=== PATIENT | male | born 2000 | race Caucasian/White ===

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

== ENCOUNTER → 2019-07-22 08:11 | Outpatient (CLI) | payer OTHER, SELFPAY ==
--- NOTE | 2019-07-22 08:17 | US_ITS ---
PROCEDURE: US ABDOMEN LIMITED CLINICAL INDICATION: ABD PAIN The upper abdominal pain with indigestion COMPARISON: RUQ US RUQ-(ABD LTD)1ORGAN/QUAD/FU from 06/27/2016 FINDINGS: PANCREAS: Unremarkable. No obvious mass or abnormal fluid collection. No ductal dilatation LIVER: No focal liver lesions are demonstrated. There is slight diffuse increase in echogenicity of the liver which may be related to fatty liver. There is appropriate direction of blood flow within a non dilated portal vein. No intrahepatic ductal dilatation is evident RIGHT KIDNEY: Unremarkable. Normal size and echogenicity. No hydronephrosis GALLBLADDER: No gallstones, gallbladder wall thickening, pericholecystic fluid, or biliary dilatation. IMPRESSION: Unremarkable gallbladder ultrasound. Possible mild Paddock steatosis Dictated by: Wilfrid Reynoso MD 07/22/2019 16:27 Electronically signed by Wilfrid Reynoso MD in [place] 07/22/2019 16:27
--- NOTE | 2019-07-22 08:17 | FL_ITS ---
PROCEDURE: FL UPPER GI W AIR CLINICAL INDICATION: ABD PAIN Abdominal pain COMPARISON: No exams were available for comparison TECHNIQUE: FLUOROSCOPY TIME : 1 minutes and 45 seconds FINDINGS: The esophagus, stomach, and duodenum have an unremarkable appearance.There is no evidence of hiatal hernia. No ulcer or mass evident. No mucosal abnormalities apparent. There is normal peristalsis. The duodenal C-loop is nondisplaced. IMPRESSION: Unremarkable upper GI Dictated by: Wilfrid Reynoso MD 07/22/2019 15:21 Electronically signed by Wilfrid Reynoso MD in [facility] 07/22/2019 15:21
== END ==
PROVIDERS: PCP Family Medicine; Visit Provider Family Medicine
DX: R10.84 Generalized abdominal pain (principal)
CPT/HCPCS: 74246; 76705

== ENCOUNTER 2019-09-05 11:34 | Emergency (ER) | payer OTHER, SELFPAY ==
[2019-09-05 11:35] VITALS: BP 170/64; PULSE 80; RESP 16; TEMP 36.6; O2SAT 98; BMI 34.7
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
[2019-09-05 12:01] VITALS: BP 118/78; PULSE 75; RESP 18; TEMP 36.7; O2SAT 99
== END 2019-09-05 12:04 | disposition home or self-care (01) ==
LOC: ER 11:58
PROVIDERS: Emergency Provider Emergency Medicine; PCP Family Medicine
DX: T15.91XA Foreign body on external eye, part unspecified, right eye, initial encounter (principal); J45.909 Unspecified asthma, uncomplicated; F17.290 Nicotine dependence, other tobacco product, uncomplicated; Z23 Encounter for immunization
CPT/HCPCS: 90471; 90715; 96372; 99281

== ENCOUNTER 2021-06-05 15:34 | Emergency (ER) | payer OTHER, SELFPAY ==
[2021-06-05 15:46] VITALS: BP 135/73; PULSE 109; RESP 16; TEMP 37.1; O2SAT 98; BMI 33.5
--- NOTE | 2021-06-05 16:02 | CT_ITS ---
PROCEDURE INFORMATION: Exam: CT Abdomen And Pelvis With Contrast Exam date and time: 06/05/2021 4:02 PM Age: 20 years old Clinical indication: Abdominal pain; Localized; Right lower quadrant (rlq); Additional info: Rlq pain, back pain with radiation to groin TECHNIQUE: Imaging protocol: Computed tomography of the abdomen and pelvis with contrast. Radiation optimization: All CT scans at this facility use at least one of these dose optimization techniques: automated exposure control; mA and/or kV adjustment per patient size (includes targeted exams where dose is matched to clinical indication); or iterative reconstruction. Contrast material: ISOVUE; Contrast volume: 75 ml; Contrast route: IV; COMPARISON: ABDPELW CT abdomen pelvis w con 09/01/2018 10:15 PM FINDINGS: Liver: Mildly fatty liver. Gallbladder and bile ducts: Normal. No calcified stones. No ductal dilation. Pancreas: Normal. No ductal dilation. Spleen: Normal. No splenomegaly. Adrenal glands: Normal. No mass. Kidneys and ureters: Normal. No hydronephrosis. Stomach and bowel: No diverticulitis. No bowel obstruction or evidence of appendicitis. Diarrhea without evidence for colitis. Small bowel wall thickening without surrounding inflammation, which may represent incomplete distension or limited enteritis. Appendix: Normal appendix. Intraperitoneal space: Unremarkable. No free air. No significant fluid collection. Vasculature: Unremarkable. No abdominal aortic aneurysm. Lymph nodes: Unremarkable. No enlarged lymph nodes. Urinary bladder: Unremarkable as visualized. Reproductive: Unremarkable as visualized. Bones/joints: Unremarkable. No acute fracture. Soft tissues: Unremarkable. Other findings: No other acute disease seen. As above. IMPRESSION: 1. No diverticulitis. No bowel obstruction or evidence of appendicitis. 2. Diarrhea without evidence for colitis. 3. Small bowel wall thickening without surrounding inflammation, which may represent incomplete distension or limited enteritis. 4. No other acute disease seen. As above.
--- NOTE | 2021-06-05 16:02 | HMH.EDGENADL ---
ED Disposition Clinical Impression: Gastroenteritis Disposition: Home, Self-Care Condition on Discharge: Good Referrals: Bibi Sams MD [Primary Care Provider] - - Critical Care Critical Care Time: No Attestation: On 06/05/21, the high probability of a clinically significant, sudden or life threatening deterioration of the following system(s) required my full and direct attention, intervention and personal management. The time I documented below is in addition to time spent performing reported procedures but includes the following listed in this critical care notation. Medical Decision Making - Medical Records Medical records reviewed: Yes: I reviewed the patient's medical records. - Juan Jose Inquiry Pt receiving controlled substance: No Vital Signs: 06/05/21 15:46 Temperature 98.8 F Temperature Source Oral Pulse Rate [Radial] 109 H Respiratory Rate 16 Blood Pressure [Right Arm] 135/73 Blood Pressure Mean [Right Arm] 93 Blood Pressure Position [Right Arm] Sitting 02 Sat by Pulse Oximetry 98 Oxygen Delivery Method Room Air - Lab Data Lab results reviewed: Yes: I reviewed the patient's lab results. Lab Results 06/05/21 15:55: WBC 10.6, RBC 5.36, Hgb 15.8, Hct 46.9, MCV 87.4, MCH 29.5, MCHC 33.8, RDW 13.3, Plt Count 290, MPV 7.7, Neut % (Auto) 83.4 H, Lymph % (Auto) 6.5 L, [place] % (Auto) 7.3, Eos % (Auto) 1.8, Baso % (Auto) 1.1, Neut # (Auto) 8.8 H, Lymph # (Auto) 0.7, [place] # (Auto) 0.8, Eos # (Auto) 0.2, Baso # (Auto) 0.1 06/05/21 15:55: Sodium 139, Potassium 3.9, Chloride 106, Carbon Dioxide 23, Anion Gap 13.9, BUN 17, Creatinine 0.80, Estimated Creat Clear 223, Estimated GFR 121, Est GFR ( Amer) 146, Glucose 103 H, Calcium 9.0, Total Bilirubin 0.8, AST 36, ALT 48, Alkaline Phosphatase 66, Total Protein 7.5, Albumin 4.9, Globulin 2.6, Albumin/Globulin Ratio 1.9 H, Lipase 50 06/05/21 15:55: C-Reactive Protein 4.2 H Result diagrams: 06/05/21 15:55 06/05/21 15:55 Orders (Tests/Meds): ED MEDICATIONS Discontinued Medications Generic Name Dose Route Start Last Admin Trade Name John PRN Reason Stop Dose Admin Acetaminophen 1,000 mg 06/05/21 16:09 06/05/21 16:32 Acetaminophen 500mg Tab PO 06/05/21 16:10 Not Given ONCE ONE Lactated Ringer's 1,000 mls @ 999 mls/hr 06/05/21 16:00 06/05/21 16:32 Lactated Ringer's 1000 Ml Bag IV 06/05/21 17:00 999 mls/hr .Q1H1M MALIKA Administration Iopamidol 75 ml 06/05/21 16:12 06/05/21 16:13 Iopamidol-370 (76%);100ml Bottle IV 06/05/21 16:13 75 ml ONCE ONE Administration Ketorolac Tromethamine 30 mg 06/05/21 16:09 06/05/21 16:31 Ketorolac 30mg/Ml Vial IV 06/05/21 16:10 30 mg ONCE ONE Administration Ondansetron HCl 4 mg 06/05/21 15:53 06/05/21 16:31 Ondansetron 4mg/2ml Vial IV 06/05/21 15:54 4 mg ONCE ONE Administration Sodium Chloride 10 ml 06/05/21 16:12 06/05/21 16:13 Sodium Chloride 0.9% 10ml Syr (Rad Only) IV 06/05/21 16:13 10 ml ONCE ONE Administration ORDERS Category Date Time Status Lactic Acid Stat Lab 06/05/21 15:52 Ordered Urinalysis and Microscopic Stat Lab 06/05/21 15:51 Ordered Medical Decision Narrative: Patient is a healthy 20-year-old male presenting with back pain with radiation to lower abdomen bilaterally and right lower quadrant pain. Differential diagnosis includes, but is not limited to, renal stone, appendicitis, diverticulitis, gastroenteritis, urinary tract infection, pyelonephritis, other. Initial exam, patient is hemodynamically stable and nontoxic-appearing but mildly tachycardic. Exam of the abdomen reveals tenderness in the epigastrium, all left lower quadrant and right lower quadrant but maximal tenderness is in the right lower quadrant with rebound. No CVA tenderness to percussion of flanks but patient reports back pain with palpation of the paraspinal muscles. No pain with direct palpation over the C, T or L-spine. Patient was evaluate CBC, C
[2021-06-05 16:11] LABS: Alanine Aminotransferase 48 U/L (12-78); Albumin Level 4.9 g/dl (3.5-5.0); Albumin/Globulin Ratio 1.9 (1.1-1.8); Alkaline Phosphatase 66 U/L (38-126); Anion Gap 13.9 mEq/L (5-15); Aspartate Amino Transferase 36 U/L (17-59); Bilirubin,Total 0.8 mg/dl (0.2-1.3); Blood Urea Nitrogen 17 mg/dl (9-20); Carbon Dioxide 23 mmol/L (22.0-30.0); Chloride 106 mmol/L (98-107); Creatinine Clearance Estimated 223 mL/min (50-200); Estimated Glomerular Filt Rate 121 ml/min (>60); GFR (African American) 146 ML/MIN (>60); Globulin 2.6 g/dL (1.3-3.2); Glucose 103 mg/dl (74-100); Lipase 50 U/L (23-300); Potassium 3.9 mmoL/L (3.5-5.1); Sodium 139 mmol/L (136-145); Total Protein,Serum 7.5 g/dl (6.3-8.2)
[2021-06-05 16:25] LABS: C-Reactive Protein 4.2 mg/L (0-4)
[2021-06-05 16:30] LABS: Basophils # 0.1 K/mm3 (0-0.2); Basophils % 1.1 % (0.1-2.0); Eosinophils # 0.2 K/mm3 (0.0-0.4); Eosinophils % 1.8 % (0.1-12.0); Hematocrit 46.9 % (42.0-52.0); Hemoglobin 15.8 g/dL (14.1-18.0); Lymphocytes # 0.7 K/mm3 (0.7-4.5); Lymphocytes % 6.5 % (10-50); Mean Corpuscular HGB Conc 33.8 g/dL (31.8-35.4); Mean Corpuscular Hemoglobin 29.5 pg (27.0-31.2); Mean Corpuscular Volume 87.4 fl (80-94); Mean Platelet Volume 7.7 fl (7.4-10.4); Monocytes # 0.8 K/mm3 (0.1-1.0); Monocytes % 7.3 % (1.7-9.3); Neutrophils # 8.8 K/mm3 (1.8-7.8); Neutrophils % 83.4 % (37.0-80.0); Platelet Count 290 K/mm3 (142-424); Red Blood Count 5.36 M/mm3 (4.60-6.20); Red Cell Distribution Width 13.3 % (11.5-17.5); White Blood Count 10.6 K/mm3 (4.8-10.8)
[2021-06-05 17:24] VITALS: BP 129/74; PULSE 89; RESP 17; TEMP 37.1; O2SAT 98
== END 2021-06-05 17:25 | disposition home or self-care (01) ==
PROVIDERS: Emergency Provider Emergency Medicine; PCP Family Medicine
DX: K52.9 Noninfective gastroenteritis and colitis, unspecified (principal); M54.50 Low back pain, unspecified; F17.290 Nicotine dependence, other tobacco product, uncomplicated
CPT/HCPCS: 74177; 80053; 83690; 85025; 86140; 96365; 96375; 99284; J2405; Q9967

== ENCOUNTER 2022-11-29 22:25 | Emergency (ER) | payer BC, SELFPAY ==
[2022-11-29 22:25] VITALS: BP 160/100; PULSE 79; RESP 20; TEMP 36.9; O2SAT 100; BMI 34.2
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
[2022-11-29 22:30] VITALS: BP 160/100; PULSE 84; RESP 14; O2SAT 98
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
--- NOTE | 2022-11-29 22:40 | PC.NURSE ---
Fast Exam negative per ER MD
[2022-11-29 22:41] LABS: Basophils # 0.1 K/mm3 (0-0.2); Basophils % 0.6 % (0.1-2.0); Eosinophils # 0.3 K/mm3 (0.0-0.4); Eosinophils % 2.7 % (0.1-12.0); Hematocrit 45.6 % (42.0-52.0); Lymphocytes # 3.2 K/mm3 (0.7-4.5); Lymphocytes % 32.9 % (10-50); Mean Corpuscular HGB Conc 32.9 g/dL (31.8-35.4); Mean Corpuscular Hemoglobin 28.1 pg (27.0-31.2); Mean Corpuscular Volume 85.4 fl (80-94); Mean Platelet Volume 7.4 fl (7.4-10.4); Monocytes # 0.5 K/mm3 (0.1-1.0); Monocytes % 5.3 % (1.7-9.3); Neutrophils # 5.6 K/mm3 (1.8-7.8); Neutrophils % 58.5 % (37.0-80.0); Platelet Count 294 K/mm3 (142-424); Red Blood Count 5.34 M/mm3 (4.60-6.20); Red Cell Distribution Width 13.1 % (11.5-17.5); White Blood Count 9.6 K/mm3 (4.8-10.8)
--- NOTE | 2022-11-29 22:43 | PC.NURSE ---
RAD at BS
--- NOTE | 2022-11-29 22:47 | PC.NURSE ---
FSBS: 132 Manual BP: 160/100
[2022-11-29 22:53] LABS: Chloride 103 mmol/L (98-107); Potassium 3.7 mmoL/L (3.5-5.1); Sodium 140 mmol/L (136-145)
[2022-11-29 22:56] LABS: Alanine Aminotransferase 49 U/L (12-78); Albumin Level 4.6 g/dl (3.5-5.0); Albumin/Globulin Ratio 1.5 (1.1-1.8); Alkaline Phosphatase 84 U/L (38-126); Anion Gap 14.7 mEq/L (5-15); Aspartate Amino Transferase 37 U/L (17-59); Bilirubin,Total 0.3 mg/dl (0.2-1.3); Blood Urea Nitrogen 20 mg/dl (9-20); Carbon Dioxide 26 mmol/L (22.0-30.0); Creatinine Clearance Estimated 150 mL/min (50-200); Estimated Glomerular Filt Rate 74 ml/min (>60); GFR (African American) 90 ML/MIN (>60); Total Protein,Serum 7.6 g/dl (6.3-8.2)
[2022-11-29 22:57] LABS: Glucose 127 mg/dl (74-100)
[2022-11-29 23:01] VITALS: BP 123/86; PULSE 98; O2SAT 98
--- NOTE | 2022-11-29 23:18 | PC.NURSE ---
Cleaned wound on right arm with hibiclens and sterile water. Pt declined having wound on leg cleaned.
--- NOTE | 2022-11-29 23:20 | PC.NURSE ---
Pt ambulatory to bathroom
--- NOTE | 2022-11-29 23:28 | PC.NURSE ---
Dr. Jacinto at
[2022-11-29 23:45] VITALS: BP 123/86; PULSE 94; RESP 16; TEMP 36.9; O2SAT 97
== END 2022-11-29 23:47 | disposition home or self-care (01) ==
PROVIDERS: Emergency Provider Emergency Medicine
DX: S52.092A Other fracture of upper end of left ulna, initial encounter for closed fracture (principal); S50.811A Abrasion of right forearm, initial encounter; V28.09XA Other motorcycle driver injured in noncollision transport accident in nontraffic accident, initial encounter
CPT/HCPCS: 71045; 72170; 73060; 73080; 73090; 73110; 80053; 85025; 96374; 96375; 99285; J2405

== ENCOUNTER 2022-12-02 10:43 | Outpatient (RCR) | payer BC, SELFPAY | END 2022-12-02 11:50 | disposition home or self-care (01) | LOC: OT 10:43 | PROVIDERS: Visit Provider Orthopaedic Surgery | DX: M25.532 Pain in left wrist (principal) | CPT/HCPCS: 97763 ==

== ENCOUNTER 2023-10-13 22:01 | Emergency (ER) | payer BC, SELFPAY ==
[2023-10-13 22:06] VITALS: BP 180/105; PULSE 120; RESP 20; TEMP 36.9; O2SAT 97
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
[2023-10-13 23:35] VITALS: BP 155/95; PULSE 100; RESP 20; TEMP 36.8; O2SAT 98
== END 2023-10-13 23:35 | disposition home or self-care (01) ==
PROVIDERS: Emergency Provider Emergency Medicine; PCP Nurse Practitioner Family
DX: S40.212A Abrasion of left shoulder, initial encounter (principal); V28.99XA Unspecified rider of other motorcycle injured in noncollision transport accident in traffic accident, initial encounter
CPT/HCPCS: 70450; 71045; 99284

== ENCOUNTER 2024-01-09 19:31 | Emergency (ER) | payer BC, SELFPAY ==
[2024-01-09 19:40] VITALS: BP 148/102; PULSE 72; RESP 18; TEMP 36.6; O2SAT 98; BMI 34.5
[2024-01-09 19:54] LABS: Coronavirus 19, PCR Not Detected (NotDetected); Influenza A, PCR Not Detected (NotDetected); Influenza B, PCR Not Detected (NotDetected)
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
[2024-01-09 20:07] LABS: Strep Scrn Group A (Rapid) Negative (Negative)
[2024-01-09 20:57] VITALS: BP 137/96; PULSE 68; RESP 18; TEMP 36.5; O2SAT 97
== END 2024-01-09 21:02 | disposition home or self-care (01) ==
PROVIDERS: Nurse Practitioner Family; Emergency Provider Student in an Organized Health Care Education/Training Program; PCP Nurse Practitioner Family
DX: J06.9 Acute upper respiratory infection, unspecified (principal); J02.9 Acute pharyngitis, unspecified; R09.82 Postnasal drip; R50.9 Fever, unspecified; R19.7 Diarrhea, unspecified; R10.9 Unspecified abdominal pain; Z20.822 Contact with and (suspected) exposure to COVID-19
CPT/HCPCS: 87430; 87636; 99283

== ENCOUNTER 2024-03-05 11:36 | Emergency (ER) | payer BC, SELFPAY ==
--- NOTE | 2024-03-05 12:00 | ED_ITS ---
Discharge Plan Disposition Patient Disposition: Home, Self-Care Condition: Good Prescriptions Prescriptions: New methylprednisolone 4 mg Tablets,Dose Pack 4 mg PO DIRECTED 6 Days Qty: 21 0RF Rx Instructions: Take 1 pack as directed for 6 days [id number] [Bromfed DM] 2-30-10 mg/5 mL Syrup 5 ml PO Q6H PRN (Reason: Cough) Qty: 240 0RF cefdinir 300 mg capsule 300 mg PO BID Qty: 20 0RF No Action omeprazole 40 mg capsule,delayed release(DR/EC) 40 mg PO DAILY Patient Comments: TAKE 1 CAPSULE BY MOUTH ONCE DAILY Referrals Follow up/Referrals: Sophie Diamond APRN [Primary Care Provider] - See instructions Activity Restrictions/Add. Instructions Additional Instructions/Restrictions: Drink plenty of fluids. Take tylenol or ibuprofen for pain or fever. Take the medications as directed. Follow up with your regular doctor. GO TO THE ER FOR ANY WORSENING SYMPTOMS Clinical Impressions Clinical Impression: Sinusitis, Acute right otitis media Stand Alone Forms Stand Alone Forms: Work/School Release Instructions Patient Instructions: Sinusitis, DI for Sinusitis Print Language Print Language: Malawian Discharge ED Provider: Joo Tol[place] [facility] General Stated complaint: congestion cough vomiting fever Time Seen by Provider: 03/05/24 12:00 Related Data Home Medications ?Medication ?Instructions ?Recorded ?Confirmed omeprazole 40 mg capsule,delayed 40 mg PO DAILY 03/05/24 03/05/24 release Previous Rx's ?Medication ?Instructions ?Recorded [id number] 5 ml PO Q6H PRN Cough #240 mL 03/05/24 2 mg-30 mg-10 mg/5 mL oral syrup (Bromfed DM) cefdinir 300 mg capsule 300 mg PO BID #20 caps 03/05/24 methylprednisolone 4 mg tablets in 4 mg PO DIRECTED 6 days #21 tabs 03/05/24 a dose pack Allergies Allergy/AdvReac Type Severity Reaction Status Date / Time Penicillins (PENICILLINS) Allergy Mild Verified 12/02/22 10:05 Sulfa (Sulfonamide Allergy Mild Verified 12/02/22 10:05 Antibiotics) (SULFA (SULFONAMIDE ANTIBIOTICS)) [facility] Disclaimer: The information contained in this section may have been updated after the patient was seen, as this information can be updated by other users. Social History , PRESSING MACHINE TENDER) Smoking Status: Current every day smoker tobacco type: smokeless tobacco alcohol intake: never current occupational status: employed household members: none housing: other number of children: 1 ROS Obtained: Yes All systems reviewed & no additional complaints except as documented Constitutional Constitutional: Reports chills and Reports fever(s) Eyes Eyes: Denies eye discharge ENT Ears, Nose, Mouth, and Throat: Reports as per HPI Cardiovascular Cardiovascular: Denies chest pain Respiratory Respiratory: Denies chest congestion and Reports cough Gastrointestinal Gastrointestingal: Reports nausea; Denies abdominal pain, constipation, cramping, diarrhea or vomiting Musculoskeletal Musculoskeletal: Denies arthralgias Integumentary/Breasts Skin/Breast: Denies rash Neurologic Neurologic: Denies paresthesias Physical Exam General General appearance: alert and in no apparent distress Eye Eye exam: Present normal appearance, PERRL and EOMI ENT ENT exam: Present mucous membranes moist and normal external ear exam Expanded ENT Exam External ear exam: Present normal external inspection TM/Canal exam: Bilateral TM: erythema and bulging Nose exam: Absent sinus tenderness Nasal speculum exam: Bilateral: normal Mouth exam: Present normal external inspection; Absent drooling Teeth exam: Present normal inspection Throat exam: Present tonsillar erythema and tonsillomegaly Neck Neck exam: Present normal inspection, full ROM and trachea midline; Absent tenderness, lymphadenopathy or thyromegaly Chest Chest inspection: Present normal inspection and symmetric chest wall rise; Absent tenderness or rash Respiratory Respiratory exam: Present normal lung sounds bilaterally; Absent respiratory distress, wheezes, stridor or accessory muscle use Cardiovascular Cardiovascular exam: Present regular rate, normal rhythm and normal heart sounds Abdominal Exam Abdominal exam: Present soft; Absent distention, tenderness, guarding, rebound or rigidity Extremities Exam Extremities exam: Present normal inspection, full ROM and normal capillary refill; Absent tenderness or calf tenderness Back Exam Back exam: Present normal inspection and full ROM; Absent tenderness Neurological Exam Neurological exam: Present alert and oriented X3 Psychiatric Psychiatric exam: Present normal affect and normal mood Skin Skin exam: Present warm, dry, intact and normal color Lymphatic Lymphatic Findings: no adenopathy Medical Decision Making Medical Records Medical records reviewed: No I reviewed the patient's medical records. Screening: Per USPSTF and CDC recommendations, given the prevalence of disease in our region, it is our hospital?s policy to screen for HIV and viral Hepatitis for all patients aged 18 and over and those with ongoing risk factors. Juan Jose Inquiry Pt receiving controlled substance: No
[2024-03-05 12:04] VITALS: BP 147/78; PULSE 92; RESP 20; TEMP 36.9; O2SAT 97; BMI 36.9
[2024-03-05 12:50] VITALS: BP 147/78; PULSE 92; RESP 20; TEMP 36.9
== END 2024-03-05 13:31 | disposition home or self-care (01) ==
PROVIDERS: Emergency Provider Nurse Practitioner Family; PCP Nurse Practitioner Family
DX: H66.93 Otitis media, unspecified, bilateral (principal)
CPT/HCPCS: 99213; G0381

== ENCOUNTER 2024-05-18 15:45 | Outpatient (CLI) | payer BC, SELFPAY | END 2024-05-18 23:59 | disposition home or self-care (01) | LOC: RT 15:47 | PROVIDERS: PCP Physician Assistant; Visit Provider Physician Assistant | DX: R00.2 Palpitations (principal) | CPT/HCPCS: 93225; 93227 ==

== ENCOUNTER 2024-06-30 12:10 | Outpatient (CLI) | payer BC, SELFPAY ==
--- NOTE | 2024-06-30 12:19 | XR_ITS ---
FINAL REPORT CLINICAL HISTORY: LT FOOT PAIN. 1st metatarsal to tip of big toe pain. FINDINGS: AP, oblique and lateral views of the left foot were obtained. No prior exam for comparison. There is no acute fracture or dislocation. The joint spaces are preserved. Soft tissues are unremarkable. IMPRESSION: No acute osseous abnormality of the left foot. Reviewed, Interpreted and Dictated by Leticia Robles MD Transcribed by Kandis Brock Authenticated and [facility]
[2024-06-30 12:53] LABS: Basophils % 0.3 % (0.1-2.0); Eosinophils # 0.1 K/mm3 (0.0-0.4); Eosinophils % 0.8 % (0.1-12.0); Hemoglobin 15.6 g/dL (14.1-18.0); Lymphocytes # 1.7 K/mm3 (0.7-4.5); Lymphocytes % 22.2 % (10-50); Mean Corpuscular HGB Conc 34.7 g/dL (31.8-35.4); Mean Corpuscular Hemoglobin 29.3 pg (27.0-31.2); Mean Corpuscular Volume 84.6 fl (80-94); Mean Platelet Volume 8.6 fl (7.4-10.4); Monocytes # 0.5 K/mm3 (0.1-1.0); Monocytes % 6.9 % (1.7-9.3); Neutrophils # 5.2 K/mm3 (1.8-7.8); Neutrophils % 69.5 % (37.0-80.0); Platelet Count 282 K/mm3 (142-424); Red Blood Count 5.32 M/mm3 (4.60-6.20); White Blood Count 7.5 K/mm3 (4.8-10.8)
[2024-06-30 13:09] LABS: C-Reactive Protein 3.9 mg/L (0-4)
[2024-06-30 13:16] LABS: Uric Acid 9.2 mg/dl (3.5-8.5)
[2024-06-30 13:52] LABS: Erythrocyte Sedimentation Rate 3 mm/hr (0-15)
== END 2024-06-30 23:59 | disposition home or self-care (01) ==
LOC: RAD 12:12
PROVIDERS: PCP Nurse Practitioner Family; Visit Provider Nurse Practitioner Family
DX: M79.672 Pain in left foot (principal); M79.89 Other specified soft tissue disorders
CPT/HCPCS: 36415; 73630; 84550; 85025; 85651; 86140

== ENCOUNTER 2025-02-03 00:57 | Emergency (ER) | payer BC, SELFPAY ==
--- OUTSIDE RECORDS SUMMARY | 2024-05-18 11:00 | XMS_ITS ---
Author Organization [facility] Address [address] [place] [id number] Care Team Providers Care Legal Counsel Name Role Phone Alex Sams Primary Care Provider Ruchi Villasenor Unavailable [phone] Justyna Frankel Unavailable [phone] Allergies Allergen (clinical drug ingredient) Drug/Non Drug Allergy documented on EMR Reaction Allergy Type Onset Date Status PEANUTS, SHRIMP, GRASS (uncoded) Unknown Allergy Active Substance with penicillin structure and antibacterial mechanism of action (substance) Penicillins Unknown Drug Allergy Active Substance with sulfonamide structure and antibacterial mechanism of action (substance) Sulfa Antibiotics Unknown Drug Allergy Active Results Component Value Reference Range Notes Urinalysis - Inhouse Reviewed date:05/18/2024 03:49:37 PM Interpretation: Performing Lab: Notes/Report: Color/Clarity yellow/clear Leuk Neg Nitrite Neg Urobili 3.2 Protein Neg pH 6.0 Blood Neg Sp. Gr. 1.025 Ketone Neg Bili Neg Gluc Neg CBC Fingerstick (in house) Reviewed date:05/18/2024 03:49:46 PM Interpretation: Performing Lab: Notes/Report: wbc 9.1 3.5 - 10 lym 27.1% 15 - 50 mid 5.8% 2 - 15 gran 67.1% 35 - 80 rbc 5.96 3.5 - 5.5 hgb 17.2 11.5 - 16.5 hct 50.6 35 - 55 mcv 84.9 75 - 100 mch 29.0 25 - 35 mchc 34.1 31 - 38 plat 284 100 - 400 P-Amylase Reviewed date:05/23/2024 07:44:41 AM Interpretation: Performing Lab: Notes/Report: Test performed by [facility] [address] , [address], [place] [address] Tang Fatima MD, Retail Service Representative CLIA: [id number] Amylase 46 28-100 U/L P-Vitamin B12 Reviewed date:05/23/2024 07:44:41 AM Interpretation: Performing Lab: Notes/Report: Test performed by [facility] , [address], [place] [address] Tang Fatima MD, Retail Service Representative CLIA: [id number] Vitamin B12 878 017-0435 pg/mL P-Comprehensive Metabolic Pa fiona (CMP) Reviewed date:05/23/2024 07:44:41 AM Interpretation: Performing Lab: Notes/Report: Test performed by [facility] [address] [place] [address] , [place] [address] Tang Fatima MD, Retail Service Representative CLIA: [id number] Sodium 140 135-145 mmol/L Potassium 4.3 3.5-5.3 mmol/L Chloride 99 97-108 mmol/L CO2 25 22-32 mmol/L Glucose 86 65-99 mg/dL BUN 13 6-20 mg/dL Creatinine 1.08 0.70-1.30 mg/dL Calcium 10.6 8.6-10.4 mg/dL eGFR by Creatinine 97 >59 mL/min/1.73m2 Protein 7.9 6.0-8.3 g/dL Albumin 5.0 3.5-5.3 g/dL Alkaline Phosphatase 67 40-129 IU/L ALT (SGPT) 46 <5-55 IU/L AST (SGOT) 23 <5-46 IU/L Bilirubin, Total 0.5 <0.2-1.2 mg/dL A/G Ratio 1.7 1.1-2.5 P-Lipase Reviewed date:05/23/2024 07:44:41 AM Interpretation: Performing Lab: Notes/Report: Test performed by [facility] [address] [place] [address] , [address], [place] [address] Tang Fatima MD, Retail Service Representative CLIA: [id number] Lipase 23.7 13.0-60.0 u/L P-Lipid Panel Reviewed date:05/23/2024 07:44:41 AM Interpretation: Performing Lab: Notes/Report: Test performed by [employer] [facility] [address], [place] [address] Tang Fatima MD, Retail Service Representative CLIA: [id number] Cholesterol 203 <200 mg/dL Triglycerides 251 <150 mg/dL HDL Cholesterol 31 >39 mg/dL Cholesterol / HDL Ratio 6.55 0.00-4.99 Ratio Non-HDL Cholesterol 172 <130 mg/dL LDL Cholesterol (Calculation) 122 <130 mg/dL LDL Cholesterol Levels* Less than 100 mg/dL Optimal 100 to 129 mg/dL Near Optimal/ Above Optimal 130 to 159 mg/dL Borderline High 160 to 189 mg/dL High 190 mg/dL and above Very High * Categories as recommended by the 2004 ATPIII guidelines LDL/HDL Ratio 3.9 <3.3 Ratio LDL Cholesterol Patient History Test Date: 05/18/2024 LDL Results: 122 Units: mg/dL % Change: - P-TSH reflex to FT4 Reviewed date:05/23/2024 07:44:41 AM Interpretation: Performing Lab: Notes/Report: Test performed by [facility] [address] [facility] [address], [place] [address] Tang Fatima MD, Retail Service Representative CLIA: [id number] TSH reflex to FT4 1.59 0.43-5.25 mU/L P-Vitamin D 25-Hydroxy Reviewed date:05/23/2024 07:44:41 AM Interpretation: Performing Lab: Notes/Report: Test performed by [facility] [address] [facility] , [address], [place] [address] Tang Fatima MD, Retail Service Representative CLIA: [id number] Vitamin D 25-Hydroxy 15.7 30.0-100.0 ng/mL Interpretation of Vitamin D 25 OH: < 20 ng/mL - Deficiency 20 - 29 ng/mL - Insufficiency 30 - 100 ng/mL - Sufficiency > 100 ng/mL - Super-therapeutic- toxicity may occur above this level. Clinical correlation required. Holter Monitor- 48 hour Reviewed date:08/05/2024 11:21:05 AM Interpretation: Performing Lab: Notes/Report: Reason For Referral Diagnosis 1 Abdominal cramps (R1 0.9) Diagnosis 2 Chronic diarrhea (K5 2.9) [facility] Referring Provider First Name Justyna Referring Provider Last Name Marlys Referring Provider Speciality Physician Advertising Designer Referred Provider Gastroenterology, . Referred Provider Specialty Gastroentero logy General Notes Justyna Frankel 05/18 4:31:56 PM > Pt needs an appt with Shana Carter Brynn 05/19/2024 9:36:17 AM > faxed to Dr. Carter office, Marcela Saldana 05/27/2024 10:18:39 AM > spoke with Apryl in Dr. Carter office; confirmed referral received Referral Priority Routine REASON FOR VISIT headaches, and spot on side of his head, stomach cramps Medications Medication SIG (Take, Route, Frequency, Duration) Notes Start Date End Date Status Omeprazole 40 MG 1 cap(s) orally once a day; Duration: 30 day(s) 07/20/2019 Active Hyoscyamine Sulfate 0.125 MG 1 tablet on the tongue and allow to dissolve as needed Orally every 4 hrs, prn 05/18/2024 Active Problems Problem Type SNOMED Code ICD Code Onset Dates Problem Status W/U Status Risk Notes Problem Essential hypertension (85480201) Essential hypertension (I10) Active confirmed Problem Vitamin D deficiency (40979322) Vitamin D deficiency (E55.9) Active confirmed Problem Mixed hyperlipidemia (985169005) Mixed hyperlipidemia (E78.2) Active confirmed Vital Signs Blood pressure systolic 138 mm Hg 05/18/19 25 Blood pressure diastolic 94 mm Hg 025 Heart Rate 87 /min 05/18/2024 Height 70.50 in 05/18/2024 Weight 256.4 lbs 05/18/2024 BMI 36.27 kg/m2 05/18/2024 Encounters Encounter Location Date Provider Diagnosis [facility] [address] [place], [place] [id number] 05/18/2024 Justyna Frankel Abdominal cramps R10 .9 ; Chronic diarrhea K52.9 ; Palpitations R00.2 ; Essential hypertension I10 ; Frequent headaches R51.9 ; Vitamin B12 deficiency E53.8 ; Vitamin D deficiency E55.9 and Mixed hyperlipidemia E78.2 Assessments Encounter Date Diagnosis (ICD Code) Assessment Notes Treatment Notes Treatment Clinical Notes Section Notes 05/18/2024 Abdominal cramps (ICD-10 - R10.9) Will get a TEN stool panel to r/o infection and make GI referral. 05/18/2024 Chronic diarrhea (ICD-10 - K52.9) 05/18/2024 Palpitations (ICD-10 - R00.2) 05/18/2024 Essential hypertension (ICD-10 - I10) BP was normal today. Will get a holter. He may need a Beta Deepali. He says he did not tolerate losartan and amlodipine. 05/18/2024 Frequent headaches (ICD-10 - R51.9) Will check labs before getting imaging. 05/18/2024 Vitamin B12 deficiency (ICD-10 - E53.8) 05/18/2024 Vitamin D deficiency (ICD-10 - E55.9) 05/18/2024 Mixed hyperlipidemia (ICD-10 - E78.2) Plan Of Treatment Medication Medication Name Sig Start Date Stop Date Notes Hyoscyamine Sulfate 0.125 MG 1 tablet on the tongue and allow to dissolve as needed Orally every 4 hrs, prn 05/18/2024 Treatment Notes Assessment Notes Abdominal cramps Will get a TEN stool panel to r/o infection and make GI referral. Essential hypertension BP was normal tod ay. Will get a holter. He may need a Beta Deepali. He says he did not tolerate losartan and amlodipine. Frequent headaches Will check labs befo re getting imaging. Referrals Referral Date Details 05/18/2024 05/18/2024, . Gastro enterology Next Appt Details Follow Up: via phone to repo rt test results, Reason: Progress Notes * VIRIDIANA YARBROUGHEDOB:2000 ( 24 yo M)Acc No.[id number]:05/18/2024 Progress Notes Patient: ARNAUD HEADLEY Provider: CHRIST Christy :2000 A ge:23 Y S ex:Male Date:05/18/2024 Address:[address] [place] [address] LIYA ADAM [id number] Pcp:Alex Sams Subjective: * Chief Complaints: * 1 . Headaches, and spot on side of his head, stomach cramps. * HPI: G astroenterology: The pt states he has had abdominal issues most of his life. Pt states about 2 weeks ago he had severe pain in the LLQ. Pt states he had another episode last night and his heart rate elevated. Pt states since last night he has had some sharp quick pains and the pain in his abdomen now extends up into the epigastric area and periumbilical area. He has never seen a GI or had a scope. His last abdominal CT in 2021 showed some small bowel wall thickening. 23 year old male presents with c/o Abdominal Pain. c/o Diarrhea. Denies : Nausea. D enies : Vomiting. O pthalmology: The pt states since February he has had some intermittent sharp pain in the left orthodoxy that radiates to the center of his head and it has also caused some vision changes. The pain happens frequently but only lasts for a few seconds and then is gone. He had his eyes checked and he was told they were fine. C ardiology: Was on amlodipine/losartan for HTN. He did not tolerate the medication and stopped it. He does have palpitations frequently and has never had a holter. c/o Dizziness. c/o Palpitations. c/o Blood Pressure Elevated. Denies : Chest Pain. P sychology: Was given prozac in the past but it did not work for him. He has tried and failed about 4-5 medications. He has never had genetic testing. * ROS: R ESPIRATORY: no S hortness of breath. n o C ough. ? C ARDIOLOGY: no C hest pain. n o S hortness of breath. ? U ROLOGY: no D ifficulty urinating. n o B lood in urine. * Medical History: A sthma, Allergies, Bladder Problems, Obsessive Compulsive Disorder, ADHD, Gout , HTN, HLP, Elevated liver tests, Prediabetes. * Surgical History: E ar Tubes 1998, Strabismus 2002, Tonsilectomy & Adenoidectomy 04/09/2011. * Hospitalization/Major Diagno stic Procedure: D ouble Ear Infection- [facility] 09/18/2013, Stomach Pain- [facility] 09/01/2018. * Family History: F ather: alive, heart attack. M other: alive, DM. P aternal Grand Father: alive. P aternal Grand Mother: alive. M aternal Grand Father: , electrocution. M aternal Grand Mother: alive. 1 brother(s) . . * Social History: C URRENT TOBACCO USE S moking Status: Patient does NOT smoke. C affeine: yes. Exercise: yes. Home smoke detector use: yes. Marital Status: Single. New since last visit: none. Past smoking status: no. Occup. exposure: none. Recreational drug use: no. Travel ouside [place]: no. * Medications: T aking Omeprazole 40 MG Capsule Delayed Release 1 cap(s) orally once a day , Discontinued Vitamin D3 1.25 MG (75969 UT) Capsule 1 capsule Orally once per week , Medication List reviewed and reconciled with the patient * Allergies: S ulfa Antibiotics, Penicillins, PEANUTS, SHRIMP, GRASS. Objective: * Vitals: W t:256.4, Temp:97.9, BP:138/94, HR:87, Nurse:MRAK, Ht: 70.50, Repeat BP:128/88, BMI:36.27. * Examination: G eneral Examination: General Appearance: N AD. H EENT: sclera and conjunctiva clear, PERRLA, TM's normal, translucent, EOM's with normal ROM. O ral cavity: n o lesions, mucosa moist and WNL, no erythema. N fred: s upple, no lymphadenopathy. C hest: normal shape and expansion. H eart: R SR. L ungs: c lear to auscultation. A bdomen: bowel sounds present, soft, ttp in the epigastric area, periumbilical area, and LLQ. Neurologic Exam: alert and oriented, normal cranial nerves II-XII sensory & motor WNL, no cerebellar signs, ttp along the left orthodoxy. S kin: n ormal, no rash. P eripheral pulses: n ormal (2+) bilaterally. E xtremities: n o leg edema. Assessment: * Assessment: 1. A bdominal cramps - R10.9 (Primary) 2 . C hronic diarrhea - K52.9 ? 3 . P alpitations - R00.2 4 . E ssential hypertension - I10 ? 5 . F requent headaches - R51.9 6 . V itamin B12 deficiency - E53.8 7 . V itamin D deficiency - E55.9 8 . M ixed hyperlipidemia - E78.2 Plan: * Treatment: Value Reference Range A mylase 46 28-100 - U/L * Justyna Frankel 05/23/2024 7: 43:38 AM > see TE ?LAB: P-Comprehensive Metabolic Panel (CMP) (Collection Date & Time - 05/18/2024 02:27 PM)* Value Reference Range A /G Ratio 1.7 1.1-2.5 - * A lbumin 5.0 3.5-5.3 - g/dL * A lkaline Phosphatase 67 40-129 - IU/L * A LT (SGPT) 46 <5-55 - IU/L * A ST (SGOT) 23 <5-46 - IU/L * B ilirubin, Total 0.5 <0.2-1.2 - mg/dL * B UN 13 6-20 - mg/dL * C alcium 10.6 H 8.6-10.4 - mg/dL * C hloride 99 97-108 - mmol/L * C O2 25 22-32 - mmol/L * C reatinine 1.08 0.70-1.30 - mg/dL * G lucose 86 65-99 - mg/dL * P otassium 4.3 3.5-5.3 - mmol/L * S odium 140 135-145 - mmol/L * P rotein 7.9 6.0-8.3 - g/dL * e GFR by Creatinine 97 >59 - mL/min/1.73m2 * MarlysJustyna John 05/23/2024 7: 43:38 AM > see TE ?LAB: P-Lipase (Collection Date & Time - 05/18/2024 02:27 PM)* Value Reference Range L ipase 23.7 13.0-60.0 - u/L * MarlysJustyna John 05/23/2024 7: 43:38 AM > see TE ?LAB: Urinalysis - Inhouse (Collection Date & Time - 05/18/2024)* Value Reference Range C olor/Clarity yellow/clear * L euk Neg * N itrite Neg * U robili 3.2 * P rotein Neg * p H 6.0 * B lood Neg * S p. Gr. 1.025 * K etone Neg * B david Neg * G tara Neg * Bailee Lubin 05/18/2024 2:5 0:19 PM > , Provider reviewed results while patient in office.MarlysJustyna John 05/18/2024 3:49:34 PM > Notes: Will get a TEN stool panel to r/o infection and make GI referral.?&#16 0;? Referral To:. Gastroenterology??Gastroenterology ?Reason: 2.?Chronic diarrhea?LAB: CBC Fingerstick (in house) (Collection Date & Time - 05/18/2024)* Value Reference Range w bc 9.1 3.5 - 10 * l ym 27.1% 15 - 50 * m id 5.8% 2 - 15 * g ran 67.1% 35 - 80 * r bc 5.96 3.5 - 5.5 * h gb 17.2 11.5 - 16.5 * h ct 50.6 35 - 55 * m cv 84.9 75 - 100 * m ch 29.0 25 - 35 * m chc 34.1 31 - 38 * p lat 284 100 - 400 * AmeeBailee L 05/18/2024 3:0 2:39 PM > , Provider reviewed results while patient in office.Justyna Frankel 05/18/2024 3:49:41 PM > ? Referral To:. Gastroenterology??Gastroenterology ?Reason: 3.?Palpitations?Imaging: Holter Monitor- 48 hour (Performed Date - 05/18/2024)* Justyna Frankel 08/05/2024 11 :20:59 AM >see TE 4.?Essential hypertension? Notes: BP was normal today. Will get a holter. He may need a Beta Deepali. He says he did not tolerate losartan and amlodipine.??5.?Frequent headaches?LAB: P-TSH reflex to FT4 (Collection Date & Time - 05/18/2024 02:27 PM)* Value Reference Range T SH reflex to FT4 1.59 0.43-5.25 - mU/L * Justyna Frankel Alvaro 05/23/2024 7: 43:38 AM > see TE Notes: Will check labs before getting imaging.??6.?Vitamin B12 deficiency?LAB: P-Vitamin B12 (Collection Date & Time - 05/18/2024 02:27 PM)* Value Reference Range V itamin B12 321 873-7015 - pg/mL * Justyna Frankel Alvaro 05/23/2024 7: 43:38 AM > see TE 7.?Vitamin D deficiency?LAB: P-Vitamin D 25-Hydroxy (Collection Date & Time - 05/18/2024 02:27 PM) * Value Reference Range V itamin D 25-Hydroxy 15.7 L 30.0-100.0 - ng/mL * Justyna Frankel Alvaro 05/23/2024 7: 43:38 AM > see TE 8.?Mixed hyperlipidemia?LAB: P-Lipid Panel (Collection Date & Time - 05/18/2024 02:27 PM)* Value Reference Range C holesterol / HDL Ratio 6.55 H 0.00-4.99 - Ratio * C holesterol 203 H <200 - mg/dL * H DL Cholesterol 31 L >39 - mg/dL * L DL Cholesterol (Calculation) 122 <130 - mg/d L * L DL/HDL Ratio 3.9 H <3.3 - Ratio * N on-HDL Cholesterol 172 H <130 - mg/dL * T riglycerides 251 H <150 - mg/dL * Justyna Frankel 05/23/2024 7: 43:38 AM > see TE * Procedure Codes: 3 6416 CAPILLARY BLOOD DRAW, 75743 CBC WITH AUTO DIFF, 03052 Urinalysis, no micro, 3074F SYST BP LT 130 MM HG, 3079F DIAST BP 80-89 MM HG * Follow Up: v ia phone to report test results * Images: Billing Information: * Visit Code: 97515 Office Visit, Est Pt., Level 4. * Procedure Codes: 81137 CAPILLARY BLOOD DRAW. 72579 CBC WITH AUTO DIFF. 83190 Urinalysis, no micro. 3074F SYST BP LT 130 MM HG. 3079F DIAST BP 80-89 MM HG. * Electronic signature of CHRIST Leigh on 02/03/2025 at 01:02 AM EDT Sign off status: Pending * Provider: CHRIST Christy Date: 0 05/18/2024 Generated for Oci ng/Famehnazg/eTransmitting on: 1 01:02 AM EDT History and Physical Notes * HPI (History of Present Illness) Category Sub-Category Detail Notes Category Not es Cardiology Chest Pain Palpitations Dizziness Blood Pressure Elevated Gastroenterology Vomiting Abdominal Pain Diarrhea Nausea Examination Category Sub-Category Detail Notes Category Not es General Examination HEENT: sclera and c onjunctiva clear, PERRLA, TM's normal, translucent, EOM's with normal ROM Heart: RSR Lungs: clear to auscultatio n Abdomen: bowel sounds present , soft, ttp in the epigastric area, periumbilical area, and LLQ Extremities: no leg edema General Appearance: NAD Skin: normal, no rash Neurologic Exam: alert and oriented, normal cranial nerves II-XII sensory & motor WNL, no cerebellar signs, ttp along the left orthodoxy Neck: supple, no lymphaden opathy Oral cavity: no lesions, mucosa m oist and WNL, no erythema Peripheral pulses: normal (2+) bilatera lly Chest: normal shape and exp ansion Consultation Request Notes Referral Date Referring Provider Referred Provider Not es 05/18/2024 Justyna Frankel Gastroenterology, .
--- OUTSIDE RECORDS SUMMARY | 2024-12-02 11:30 | XMS_ITS ---
Author Organization [facility] Address [address] [facility] [address] [place] [id number] Care Team Providers Care Hostel Parent Name Role Phone Alex Sams Primary Care Provider Ruchi Villasenor Unavailable [phone] Justyna Frankel Unavailable [phone] Allergies Allergen (clinical drug ingredient) Drug/Non Drug Allergy documented on EMR Reaction Allergy Type Onset Date Status PEANUTS, SHRIMP, GRASS (uncoded) Unknown Allergy Active Substance with penicillin structure and antibacterial mechanism of action (substance) Penicillins Unknown Drug Allergy Active Substance with sulfonamide structure and antibacterial mechanism of action (substance) Sulfa Antibiotics Unknown Drug Allergy Active Results Component Value Reference Range Notes CBC Fingerstick (in house) Reviewed date:12/02/2024 05:18:53 PM Interpretation: Performing Lab: Notes/Report: wbc 9.6 3.5 - 10 lym 24.1 15 - 50 mid 6.6 2 - 15 gran 69.3 35 - 80 rbc 5.31 3.5 - 5.5 hgb 15.4 11.5 - 16.5 hct 45.7 35 - 55 mcv 86.2 75 - 100 mch 29.1 25 - 35 mchc 33.7 31 - 38 plat 298 100 - 400 P-Amylase Reviewed date:12/08/2024 03:17:50 PM Interpretation: Performing Lab: Notes/Report: Test performed by [facility] [address] [place] [address] , [address], [place] [address] Tang Fatima MD, Rejected Items Clerk CLIA: [id number] Amylase 40 28-100 U/L P-Comprehensive Metabolic Pa fiona (CMP) Reviewed date:12/08/2024 03:17:51 PM Interpretation: Performing Lab: Notes/Report: Test performed by [facility] [address] [place] [address] [address], [place] [address] Tang Fatima MD, Rejected Items Clerk CLIA: [id number] Sodium 139 135-145 mmol/L Potassium 4.3 3.5-5.3 mmol/L Chloride 99 97-108 mmol/L CO2 26 20-32 mmol/L Glucose 86 65-99 mg/dL BUN 17 6-20 mg/dL Creatinine 1.09 0.70-1.30 mg/dL Calcium 10.0 8.6-10.4 mg/dL eGFR by Creatinine 96 >59 mL/min/1.73m2 Protein 7.3 6.0-8.3 g/dL Albumin 4.7 3.5-5.3 g/dL Alkaline Phosphatase 78 40-129 IU/L ALT (SGPT) 37 <5-55 IU/L AST (SGOT) 20 <5-46 IU/L Bilirubin, Total 0.5 <0.2-1.2 mg/dL A/G Ratio 1.8 1.1-2.5 P-Lipase Reviewed date:12/08/2024 03:17:51 PM Interpretation: Performing Lab: Notes/Report: Test performed by [facility] [address] [place] [address] [address], [place] [address] Tang Fatima MD, Rejected Items Clerk CLIA: [id number] Lipase 28.1 13.0-60.0 U/L REASON FOR VISIT sinus and upper respiratory, fever, extreme LT stomach pain Medications Medication SIG (Take, Route, Frequency, Duration) Notes Start Date End Date Status NexIUM 40 MG 1 cap Orally twice a day; Duration: 30 days 12/02/2024 Active Hyoscyamine Sulfate 0.125 MG 1 tablet under the tongue and allow to dissolve as needed Sublingual every 6 hours, prn 05/19/2024 Not-Taking Hyoscyamine Sulfate SL 0.125 MG 1 tablet under the tongue and allow to dissolve as needed Sublingual every 4 hrs, prn 12/02/2024 Active Hyoscyamine Sulfate 0.125 MG 1 tablet on the tongue and allow to dissolve as needed Orally every 4 hrs, prn 05/18/2024 Not-Taking Vital Signs Blood pressure systolic 130 mm Hg 12/03/19 25 Blood pressure diastolic 80 mm Hg 025 Heart Rate 73 /min 12/02/2024 Height 70.50 in 12/02/2024 Weight 258.6 lbs 12/02/2024 BMI 36.58 kg/m2 12/02/2024 Encounters Encounter Location Date Provider Diagnosis [facility] [address] [facility] [address] [place], [place] [id number] 12/02/2024 Justyna Frankel Left lateral abdomin al pain R10.9 ; Epigastric pain R10.13 and Acute URI J06.9 Assessments Encounter Date Diagnosis (ICD Code) Assessment Notes Treatment Notes Treatment Clinical Notes Section Notes 12/02/2024 Left lateral abdominal pain (ICD-10 - R10.9) 12/02/2024 Epigastric pain (ICD-10 - R10.13) Patient has been taking a lot of motrin. Will stop this and start on nexium at max dose to see if this helps. Will get labs. 12/02/2024 Acute URI (ICD-10 - J06.9) Patient has improved Plan Of Treatment Medication Medication Name Sig Start Date Stop Date Notes Omeprazole 40 MG 1 cap(s) orally once a day 07/20/2019 NexIUM 40 MG 1 cap Orally twice a day; Duration: 30 days 12/02/2024 Hyoscyamine Sulfate SL 0.125 MG 1 tablet under the tongue and allow to dissolve as needed Sublingual every 4 hrs, prn 12/02/2024 Treatment Notes Assessment Notes Epigastric pain Patient has been nurys ing a lot of motrin. Will stop this and start on nexium at max dose to see if this helps. Will get labs. Acute URI Patient has improved Next Appt Details Follow Up: via phone to repo rt test results, Reason: Progress Notes * SID YARBROUGHOB:2000 ( 24 yo M)Acc No.[id number]:12/02/2024 Progress Notes Patient: ARNAUD HEADLEY Provider: CHRIST Christy :2000 A ge:24 Y S ex:Male Date:12/02/2024 Address: [place], [id number] Pcp:Alex Sams Subjective: * Chief Complaints: * 1 . sinus and upper respiratory, fever, extreme LT stomach pain. * HPI: E NT/respiratory: 24 year old male presents with c/o nasal congestion P t sts he started on Thursday with nasal congestion - this has gotten better. c/o Fever. G astroenterology: c/o Abdominal Pain P t is here today with c/o extreme lt stomach pain. Pt sts this started 2 days ago and sts it has been consistent since then, pt sts this pain has been very painful . * ROS: R ESPIRATORY: no S hortness [...] Diagno stic Procedure: D ouble Ear Infection- [facility] ER 09/18/2013, Stomach Pain- [facility] ER 09/01/2018. * Family History: F [...] 1 cap(s) orally once a day , Not-Taking Hyoscyamine Sulfate 0.125 MG Tablet Disintegrating 1 tablet on the tongue and allow to dissolve as needed Orally every 4 hrs, prn , Not-Taking Hyoscyamine Sulfate 0.125 MG Tablet Sublingual 1 tablet under the tongue and allow to dissolve as needed Sublingual every 6 hours, prn , Medication List reviewed and reconciled with the patient * Allergies: S ulfa Antibiotics, Penicillins, PEANUTS, SHRIMP, GRASS. Objective: * Vitals: W t: 258.6, Temp: 97.6, BP: 130/80, HR: 73, Nurse: mm, Ht: 70.50, BMI:36.58. * Examination: G eneral Examination: General Appearance: N AD. H EENT: s clera and conjunctiva clear, PERRLA, TM's normal, translucent, nose congested. O ral cavity: n o lesions, mucosa moist and WNL, no erythema. N fred: s upple, no lymphadenopathy. C hest: n ormal shape and expansion. H eart: R SR. L ungs: c lear to auscultation. A bdomen:?bowel sounds present, soft, diffusely ttp but worse in the epigastric area and LUQ. N eurologic Exam: I ntact, gait normal. S kin: n ormal, no rash. E xtremities: n o leg edema. Assessment: * Assessment: 1. L eft lateral abdominal pain - R10.9 (Primary) 2 . E pigastric pain - R10.13 3 . A cute URI - J06.9 Plan: * Treatment: 2. E pigastric pain Start NexIUM Capsule Delayed Release, 40 MG, 1 cap, Orally, twice a day, 30 days, 60 Capsule, Refills 1; S top Omeprazole Capsule Delayed Release, 40 MG, 1 cap(s), orally, once a day. L AB: P-Amylase (Collection Date & Time - 12/02/2024 03:22 PM) Value Reference Range A mylase 40 28-100 - U/L * Justyna Frankel 12/08/2024 03 :17:45 PM EDT >see TE ?LAB: P-Comprehensive Metabolic Panel (CMP) (Collection Date & Time - 12/02/2024 03:22 PM)* Value Reference Range A /G Ratio 1.8 1.1-2.5 - * A lbumin 4.7 3.5-5.3 - g/dL * A lkaline Phosphatase 78 40-129 - IU/L * A LT (SGPT) 37 <5-55 - IU/L * A ST (SGOT) 20 <5-46 - IU/L * B ilirubin, Total 0.5 <0.2-1.2 - mg/dL * B UN 17 6-20 - mg/dL * C alcium 10.0 8.6-10.4 - mg/dL * C hloride 99 97-108 - mmol/L * C O2 26 20-32 - mmol/L * C reatinine 1.09 0.70-1.30 - mg/dL * G lucose 86 65-99 - mg/dL * P otassium 4.3 3.5-5.3 - mmol/L * S odium 139 135-145 - mmol/L * P rotein 7.3 6.0-8.3 - g/dL * e GFR by Creatinine 96 >59 - mL/min/1.73m2 * Justyna Frankel 12/08/2024 03 :17:45 PM EDT >see TE ?LAB: P-Lipase (Collection Date & Time - 12/02/2024 03:22 PM)* Value Reference Range L ipase 28.1 13.0-60.0 - U/L * Justyna Frankel 12/08/2024 03 :17:45 PM EDT >see TE Notes: Patient has been taking a lot of motrin. Will stop this and start on nexium at max dose to see if this helps. Will get labs. ??3.?Acute URI?LAB: CBC Fingerstick (in house) (Collection Date & Time - 12/02/2024)* Value Reference Range w bc 9.6 3.5 - 10 * l ym 24.1 15 - 50 * m id 6.6 2 - 15 * g ran 69.3 35 - 80 * r bc 5.31 3.5 - 5.5 * h gb 15.4 11.5 - 16.5 * h ct 45.7 35 - 55 * m cv 86.2 75 - 100 * m ch 29.1 25 - 35 * m chc 33.7 31 - 38 * p lat 298 100 - 400 * Maddi Fernando 12/02/2024 03:2 6:06 PM EDT > Provider reviewed results while patient in office. Notes: Patient has improved?? * Procedure Codes: 3 6416 CAPILLARY BLOOD DRAW, 41559 CBC WITH AUTO DIFF, 1036F TOBACCO NON-USER, 3075F SYST BP GE 130 - 139MM HG, 3079F DIAST BP 80-89 MM HG * Follow Up: v ia phone to report test results * Images: Billing Information: * Visit Code: 00702 Office Visit, Est Pt., Level 4. * Procedure Codes: 14889 CAPILLARY BLOOD DRAW. 43641 CBC WITH AUTO DIFF. 1036F TOBACCO NON-USER. 3075F SYST BP GE 130 - 139MM HG. 3079F DIAST BP 80-89 MM HG. * Electronic signature of CHRIST Leigh on 02/03/2025 at 01:03 AM EDT Sign off status: Pending * Provider: CHRIST Christy Date: 0 12/02/2024 Generated for Kobe singh/Curt/eTransmitting on: 1 01:03 AM EDT History and Physical Notes * HPI (History of Present Illness) Category Sub-Category Detail Notes Category Not es ENT/respiratory Fever nasal congestion Pt sts he started on Thursday with nasal congestion - this has gotten better Gastroenterology Abdominal Pain Pt is here toda y with c/o extreme lt stomach pain. Pt sts this started 2 days ago and sts it has been consistent since then, pt sts this pain has been very painful Examination Category Sub-Category Detail Notes Category Not es General Examination HEENT: sclera and c onjunctiva clear, PERRLA, TM's normal, translucent, nose congested Heart: RSR Lungs: clear to auscultatio n Abdomen: bowel sounds present , soft, diffusely ttp but worse in the epigastric area and LUQ Extremities: no leg edema General Appearance: NAD Skin: normal, no rash Neurologic Exam: Intact, gait normal Neck: supple, no lymphaden opathy Oral cavity: no lesions, mucosa m oist and WNL, no erythema Chest: normal shape and exp ansion
--- OUTSIDE RECORDS SUMMARY | 2025-02-03 01:04 | XMS_ITS | Patient Health Record ---
[facility] Address [address] [place] [phone] Care Team Providers Care Electronics Maintenance Technician Name Role Phone Alex Sams Primary Care Provider Ruchi Villasenor Unavailable [phone] Justyna Frankel Unavailable [phone] Allergies Allergen (clinical drug ingredient) Drug/Non Drug [...] Interpretation: Performing Lab: Notes/Report: Test performed by [facility] [address] , [address], [place] [address] Tang Fatima MD, Tracer Powder Blender CLIA: [id number] Amylase 46 28-100 U/L P-Vitamin B12 Reviewed date:05/23/2024 07:44:41 AM Interpretation: Performing Lab: Notes/Report: [facility] , [address], [place] [address] Tang Fatima MD, Tracer Powder Blender CLIA: [id number] Vitamin B12 688 223-3387 pg/mL P-Comprehensive Metabolic Pa fiona (CMP) Reviewed date:05/23/2024 07:44:41 AM Interpretation: Performing Lab: Notes/Report: Test performed by [facility] [address] , [place] [address] Tang Fatima MD, Tracer Powder Blender CLIA: [id number] Sodium 140 135-145 mmol/L Potassium 4.3 3.5-5.3 [...] Interpretation: Performing Lab: Notes/Report: Test performed by [facility] [address] [place] [address] , [place] [address] Tang Fatima MD, Tracer Powder Blender CLIA: [id number] Lipase 23.7 13.0-60.0 u/L P-Lipid Panel Reviewed date:05/23/2024 07:44:41 AM Interpretation: Performing Lab: Notes/Report: Test performed by [facility] Narinder Ramirez, [place] [address] Tang Fatima MD, Tracer Powder Blender CLIA: [id number] Cholesterol 203 <200 mg/dL Triglycerides 251 <150 [...] Interpretation: Performing Lab: Notes/Report: Test performed by [facility] [address] [facility] [place] [address] Tang Fatima MD, Tracer Powder Blender CLIA: [id number] TSH reflex to FT4 1.59 0.43-5.25 mU/L P-Vitamin D 25-Hydroxy Reviewed date:05/23/2024 07:44:41 AM Interpretation: Performing Lab: Notes/Report: Test performed by [facility] [address] [place] [address] , [place] [address] Tang Fatima MD, Tracer Powder Blender CLIA: [id number] Vitamin D 25-Hydroxy 15.7 30.0-100.0 ng/mL Interpretation of Vitamin D 25 OH: < 20 ng/mL - Deficiency 20 - 29 ng/mL - Insufficiency 30 - 100 ng/mL - Sufficiency > 100 ng/mL - Super-therapeutic- toxicity may occur above this level. Clinical correlation required. Holter Monitor- 48 hour Reviewed date:08/05/2024 11:21:05 AM Interpretation: Performing Lab: Notes/Report: CBC Fingerstick (in house) Reviewed date:12/02/2024 05:18:53 [...] Interpretation: Performing Lab: Notes/Report: Test performed by [facility] [address] [place] [address] , [address], [place] [address] Tang Fatima MD, Tracer Powder Blender CLIA: [id number] Amylase 40 28-100 U/L P-Comprehensive Metabolic Pa fiona (CMP) Reviewed date:12/08/2024 03:17:51 PM Interpretation: Performing Lab: Notes/Report: Test performed by [facility] [address] [place] [address] , [place] [address] Tang Fatima MD, Tracer Powder Blender CLIA: [id number] Sodium 139 135-145 mmol/L Potassium 4.3 3.5-5.3 [...] Interpretation: Performing Lab: Notes/Report: Test performed by [facility], [address] , [address] , [place] [address] Tang Fatima MD, Tracer Powder Blender CLIA: [id number] Lipase 28.1 13.0-60.0 U/L Medications Medication SIG (Take, Route, Frequency, Duration) [...] Orally every 4 hrs, prn 05/18/2024 Not-Taking Immunizations Vaccine Route Administration Date Status Comme nts xFluzone (6mos and older)-trivalent IM Intramuscular 02/19/2012 Administered xFlu shot-36 months and older IM Intramuscular 02/08/2010 Administered Varivax Unknown 10/30/1999 Administered Tetanus Tdap-Adacel (over 7yrs) IM Intramuscular 08/27/2009 Administered Tetanus Tdap-Adacel (over 7yrs) Unknown 09/05/2019 Administered MMR Unknown 11/01/2002 Administered Menactra IM Intramuscular 11/07/2009 Administered IPV Unknown 11/01/2002 Administered H1N1 flu vaccine IM Intramuscular 01/30/2009 Administered Fluzone Quad (6months&older) IM Intramuscular 01/18/2015 Administered Problems Problem Type SNOMED Code ICD Code Onset Dates Problem Status W/U Status Risk Notes Problem Attention deficit hyperactivity disorder (172468308) Attention deficit hyperactivity disorder (314.01) Active confirmed Problem Allergic rhinitis (09445630) ALLERGIC RHINITIS NOS (477.9) Active confirmed Problem Asthma (968154014) ASTHMA NOS (493.90) Active confirmed Problem Viral illness (42754089) Viral illness (B34.9) Active confirmed Problem Vitamin D deficiency (21194074) Vitamin D deficiency (E55.9) Active confirmed Problem Essential hypertension (13080982) Essential hypertension (I10) Active confirmed Problem Mixed anxiety and depressive disorder (569271286) Depression with anxiety (F41.8) Active confirmed Problem Mixed hyperlipidemia (921334496) Mixed hyperlipidemia (E78.2) Active confirmed Problem Irritable bowel syndrome with diarrhea (331476948) Irritable bowel syndrome with diarrhea (K58.0) Active confirmed Problem Mood disorder (02204588) Mood disorder (F39) Active confirmed Problem Gastroesophageal reflux disease without esophagitis (283203471) Gastroesophageal reflux disease without esophagitis (K21.9) Active confirmed Problem Attention deficit hyperactivity disorder (961913758) Attention deficit hyperactivity disorder (ADHD), combined type (F90.2) Active confirmed Problem Dermatitis (969702851) Dermatitis (L30.9) Active confirmed Problem Uncomplicated mild persistent asthma (851043547) Mild persistent asthma without complication (J45.30) Active confirmed Problem Chest pain (57701702) Chest pain, unspecified type (R07.9) Active confirmed Problem Seasonal allergic rhinitis (631510566) Seasonal allergic rhinitis, unspecified allergic rhinitis trigger (J30.2) Active confirmed Problem Asthma (805379729) Unspecified a sthma (J45.909) Active confirmed Problem Obsessive-compulsiv e disorder (658987574) Obsessive-compulsi ve disorder, unspecified type (F42.9) Active confirmed Problem Contusion of hand (6744544) Contusion of hand, right (S60.221A) Active confirmed Problem Steatohepatitis (613448892) Steatohepatitis (K75.81) Active confirmed Problem Migraine (82614290) Migraine syn drome (G43.909) Active confirmed Problem Supraventricular tachycardia (7662321) SVT (supraventricular tachycardia) (I47.10) Active confirmed Vital Signs Heart Rate 73 /min 12/02/2024 Blood pressure diastolic 80 mm Hg 12/02/2024 Height 70.50 in 12/02/2024 Blood pressure systolic 130 mm Hg 12/02/2024 Weight 258.6 lbs 12/02/2024 BMI 36.58 kg/m2 12/02/2024 Encounters Encounter Location Date [facility] [address] [place], [place] [id number] 05/18/2024 Justyna Marlys Abdominal cramps R10 .9 ; Chronic diarrhea K52.9 ; Palpitations R00.2 ; Essential hypertension I10 ; Frequent headaches R51.9 ; Vitamin B12 deficiency E53.8 ; Vitamin D deficiency E55.9 and Mixed hyperlipidemia E78.2 [facility] [address] [place], [place] [id number] 12/02/2024 Justynaari Frankel Left lateral abdomin al pain R10.9 ; Epigastric pain R10.13 and Acute URI J06.9 [facility] [address] [place], [place] [id number] 05/19/2024 Justyna Calderondy [facility] [address] [facility] [address] [place], [place] [id number] 05/20/2024 Justyna Crowdy [facility] [address] [facility] [address] [place], [place] [id number] 08/05/2024 Justyna Calderondy [facility] [address] [facility] [address] [place], [place] [id number] 12/06/[address] [facility] [address] [place], [place] [id number] 12/08/2024 Justyna Frankel Assessments Encounter Date Diagnosis (ICD Code) Assessment Notes Treatment Notes Treatment Clinical Notes Section Notes 05/18/2024 Abdominal cramps (ICD-10 - R10.9) Will get a TEN stool panel to r/o infection and make GI referral. 05/18/2024 Chronic diarrhea (ICD-10 - K52.9) 12/02/2024 Left lateral abdominal pain (ICD-10 - R10.9) 12/02/2024 Epigastric pain (ICD-10 - R10.13) Patient has been taking a lot of motrin. Will stop this and start on nexium at max dose to see if this helps. Will get labs. 12/02/2024 Acute URI (ICD-10 - J06.9) Patient has improved 05/18/2024 Palpitations (ICD-10 - R00.2) 05/18/2024 Essential [...] hyperlipidemia (ICD-10 - E78.2) Plan Of Treatment Pending Test Test Name Order Date P-Vitamin B1 (Thiamine), Serum/Plasma, L C/MS/MS 03/04/2023 Insurance Providers Payer Name Payer Address Payer Phone Subscriber Number Group Number Insured Name Patient Relationship to Insured Coverage Start Date Coverage End Date [employer] [address] [place] [address] [id number] ARNAUD YARBROUGH Self - patient is the insured Medical (General) History Medical History History ICD Code Asthma Allergies Bladder Problems Obsessive Compulsive Disorder ADHD Gout HTN HLP Elevated liver tests Prediabetes Surgical History Surgery Date(Month/Year) Ear Tubes 1998 Strabismus 2002 Tonsilectomy & Adenoidectomy 04/09/2011 Hospitalization History Reason Date(Month/Year) Stomach Pain- [facility] ER 09/01/2018 Double Ear Infection- [facility] 09/18/2013
[2025-02-03 01:07] VITALS: BP 157/99; PULSE 80; RESP 18; TEMP 36.7; O2SAT 100; BMI 34.8
[2025-02-03 01:20] VITALS: BP 157/99; PULSE 80; RESP 16; TEMP 36.7; O2SAT 100
--- NOTE | 2025-02-03 01:58 | CT_ITS ---
PROCEDURE INFORMATION: Exam: CT Maxillofacial Without and With Contrast Exam date and time: 02/03/2025 2:39 AM Age: 24 years old Clinical indication: Jaw pain; Additional info: Trigeminal neuralgia, soft mass superior to L tmj TECHNIQUE: Imaging protocol: Computed tomography of the face without and with contrast. Radiation optimization: All CT scans at this facility use at least one of these dose optimization techniques: automated exposure control; mA and/or kV adjustment per patient size (includes targeted exams where dose is matched to clinical indication); or iterative reconstruction. Contrast material: ISOVUE; Contrast volume: 75 ml; Contrast route: IV; COMPARISON: CT FACIAL BONES WO/W CON 02/03/2025 2:39 AM FINDINGS: Paranasal sinuses: No air-fluid levels. Orbital cavities: Orbits are normal. Globes are unremarkable. Bones: No acute fracture. Soft tissues: At the site of the small BB there is a 24 x 5 x 20 mm lipoma.. IMPRESSION: 1. There is a small benign lipoma at the site of the marker in the left temporal region. 2. Consider MRI for further evaluation of trigeminal neuralgia.
--- NOTE | 2025-02-03 02:02 | [facility].EDGENADL ---
Discharge Plan Disposition Patient Disposition: Home, Self-Care Condition: Good Prescriptions Prescriptions: New carbamazepine 200 mg tablet,chewable 200 mg PO BID Qty: 14 0RF carbamazepine [Tegretol] 200 mg tablet 200 mg PO BID Qty: 14 0RF No Action colchicine 0.6 mg tablet 0.6 mg PO DAILY Patient Comments: TAKE 1 TABLET BY MOUTH ONCE DAILY phentermine [Adipex-P] 37.5 mg tablet 37.5 mg PO DAILY Rx Instructions: must administer 30 minutes before or 1-2 hours after breakfast Nurtec ODT 75 mg tablet,disintegrating 75 mg PO ONCE PRN (Reason: Migraine) Qty: 10 5RF omeprazole 40 mg capsule,delayed release(DR/EC) 40 mg PO DAILY Patient Comments: TAKE 1 CAPSULE BY MOUTH ONCE DAILY Referrals Follow up/Referrals: Murtaza Slaughter MD [Nurse Practitioner, Pain Management] - See instructions Referral Note: trigeminal neuralgia Hilda Amaral APRN [Primary Care Provider, Medical] - See instructions Activity Restrictions/Add. Instructions Additional Instructions/Restrictions: You were evaluated in the ER and are believed to be appropriate for discharge at this time. Please take the prescribed carbamazepine as directed. Monitor for any symptoms or side effects. Follow-up with your primary care doctor in 1 to 2 days and asked them to prescribe a longer prescription of the carbamazepine and adjust your dosing as needed. Please ask them to order an MRI with special attention to the soft tissue of the anterior aspect of the left temporal mandibular region to further evaluate the lipoma and the trigeminal nerve itself for further assessment. Please ask them to refer you to neurology for follow-up. Call Dr. Slaughter's office in the morning to make an appointment for pain management. Return to the ER with new, worsening, or otherwise concerning symptoms. Clinical Impressions Clinical Impression: Trigeminal neuralgia, Lipoma of face Print Language Print Language: Brazilian Discharge ED Provider: Ramy Franklin Adult HPI General Chief complaint: PAIN Stated complaint: jaw pain Time Seen by Provider: 02/03/25 00:59 Mode of Arrival: Ambulatory Source of Information: Patient Description of Symptoms (Recalled from ER Triage Doc. by RN): PT presents to the ED for evaluation of L Jaw pain. PT stated he has a dx of TMJ. PT stated he went to the Dentist on 02/02/2025 and his dentist stated he may have something wrong with his Trigeminal nerve. PT stated the only thing that relives his pain is hold cold fluids in his mouth. History of Present Illness HPI narrative: 24-year-old male presents to the ER for complaints of left jaw pain. Patient reports he has a previous diagnosis of TMJ but recently started having worse pain. He saw his dentist in the last 24 hours who thought he had a small infection developing so we placed him on antibiotics which he is taking but dentist was much more concerned with the distribution of patient's pain that he has trigeminal neuralgia. Patient reports he was referred to [facility] and another specialist for follow-up but has of course not yet seen them. Patient states the only thing that seems to relieve his pain is holding cold fluids in the mouth. He demonstrates from the front of the left ear along the V2 and V3 distributions of the trigeminal nerve stating he gets sharp shooting pain along this distribution consistently. He states the dentist was treating this very subtle potential tooth infection thinking there was only a very small chance that this was actually causing his symptoms. Patient is concerned that he has a small palpable soft tissue mass just above and in front of the left ear. He reports this has been stable over the last few months. He states he saw Dr. Bocanegra for it earlier this year and she reportedly was not concerned. Review of her note demonstrates she wanted an MRI performed which has not been completed. Patient reports Toradol, Aleve, ibuprofen, Tylenol have been taken for his pain in the last few days but have not controlled it. He states he was looking at trigeminal neuralgia and learned that there is very little to be done about it but came to the ER hoping for some relief. He reports having a good relationship with his PCP. No fevers, chills, difficulty opening the mouth, difficulty breathing or swallowing, numbness, tingling, or weakness. No other complaints or concerns. Related Data Home Medications ?Medication ?Instructions ?Recorded ?Confirmed omeprazole 40 mg capsule,delayed 40 mg PO DAILY 03/05/24 08/24/24 release colchicine 0.6 mg tablet 0.6 mg PO DAILY 08/24/24 08/24/24 phentermine 37.5 mg tablet 37.5 mg PO DAILY 08/24/24 08/24/24 (Adipex-P) Previous Rx's ?Medication ?Instructions ?Recorded rimegepant 75 mg disintegrating 75 mg PO ONCE PRN Migraine #10 tabs 08/24/24 tablet (Nurtec ODT) carbamazepine 200 mg chewable 200 mg PO BID #14 tabs 02/03/25 tablet carbamazepine 200 mg tablet 200 mg PO BID #14 tabs 02/03/25 (Tegretol) Allergies Allergy/AdvReac Type Severity Reaction Status Date / Time Penicillins (PENICILLINS) Allergy Mild Verified 10/17/24 11:25 Sulfa (Sulfonamide Allergy Mild Verified 10/17/24 11:25 Antibiotics) (SULFA (SULFONAMIDE ANTIBIOTICS)) [facility] Disclaimer: The information contained in this section may have been updated after the patient was seen, as this information can be updated by other users. Medical History (Updated 02/03/25 @ 03:31 by Ramy Franklin MD) History of paroxysmal supraventricular tachycardia History of asthma History of anxiety Surgical History (Updated 08/24/24 @ 14:45 by Rachael Fitzpatrick) History of tonsillectomy Family History (Updated 08/24/24 @ 14:46 by Rachael Fitzpatrick) Other Cancer Heart attack Hypertension Social History (Updated 08/24/24 @ 14:47 by Rachael Fitzpatrick) Smoking Status: Current every day smoker tobacco type: smokeless tobacco alcohol intake: never substance use type: denies use current occupational status: employed Travel in the last 8 weeks?: None household members: none housing: other marital status: legally number of children: 1 Have you lived/traveled outside [place] in past 30 days?: No Contact w/someone who lives/traveled outside [place] past 30 days?: No Exposure to someone with infectious disease in past 14 days?: No Do you have a fever (greater than 100.4 F or 38 C)?: No Have you tested positive for COVID-19?: No Exposed to someone with COVID-19 in past 14 days?: No Do you have a sore throat?: No Do you have a cough?: No Do you have any weakness?: No Do you have any diarrhea?: No Are you experiencing any unusual bleeding?: No Do you have any muscle aches/pain?: No Do you have any abdominal pain?: No Are you experiencing loss of taste or smell?: No Other Medical History Have you received the Flu Vaccine for this season: No Have you received the Pneumonia Vaccine: No ROS Obtained: Yes Systems reviewed as appropriate & no additional complaints except as documented Per HPI Physical Exam General General appearance: alert and in no apparent distress Head Head exam: atraumatic and normocephalic Expanded Head Exam Head image:  1. 1 cm palpable, semi-mobile soft tissue mass, nontender, patient reports this is close to the origin of his pain, no overlying erythema, no fluctuance Eye Eye exam: Present PERRL and EOMI ENT ENT exam: Present mucous membranes moist and other (tenderness at L TMJ, stabbing pain shooting from this region to the nose and chin) Expanded ENT Exam External ear exam: Present normal external inspection Mouth exam: Present normal external inspection and tongue normal; Absent trismus or tongue elevation Teeth exam: Present normal inspection Comment: Mild tenderness of left TMJ Neck Neck exam: Present normal inspection and full ROM Chest Chest inspection: Present symmetric chest wall rise Respiratory Respiratory exam: Absent respiratory distress or stridor Cardiovascular Cardiovascular exam: Present regular rate and normal rhythm Abdominal Exam Abdominal exam: Present soft; Absent distention or tenderness Extremities Exam Extremities exam: Present full ROM Neurological Exam Neurological exam: Present alert, oriented X3 and CN II-XII intact; Absent motor sensory deficit Psychiatric Psychiatric exam: Present normal affect and normal mood Skin Skin exam: Present warm and dry Medical Decision Making Medical Records Medical records reviewed: Yes I reviewed the patient's medical records. Screening: Per USPSTF and CDC recommendations, given the prevalence of disease in our region, it is our hospital?s policy to screen for HIV and viral Hepatitis for all patients aged 18 and over and those with ongoing risk factors. MR Comment: Review of neurology note demonstrates patient had been recommended to have MRI orbit and face with special attention to soft tissue of the anterior aspect of left temporal mandibular region to assess the mass but unfortunately it does not appear that this was completed and patient was lost to follow-up. Juan Jose Inquiry Pt receiving controlled substance: No Vital Signs: 02/03/25 01:07 02/03/25 01:20 02/03/25 03:23 Temperature 98.1 F 98.1 F Temperature Source Oral Oral Pulse Rate 80 87 Pulse Rate [Right] 80 Respiratory Rate 18 16 16 Blood Pressure 157/99 H 170/99 H Blood Pressure [Right Arm] 157/99 H Blood Pressure Mean [Right Arm] 118 02 Sat by Pulse Oximetry 100 100 98 Oxygen Delivery Method Room Air Room Air Room Air Lab Data Lab Results 02/03/25 02:05: WBC 9.9, RBC 5.69, Hgb 16.2, Hct 47.9, MCV 84.2, MCH 28.5, MCHC 33.8, RDW 12.0, Plt Count 328, MPV 8.8, Neut % (Auto) 87.8 H, Lymph % (Auto) 9.7 L, [place] % (Auto) 2.1, Eos % (Auto) 0.0 L, Baso % (Auto) 0.2, Neut # (Auto) 8.7 H, Lymph # (Auto) 1.0, [place] # (Auto) 0.2, Eos # (Auto) 0.0, Baso # (Auto) 0.0, Sodium 138, Potassium 4.6, Chloride 102, Carbon Dioxide 25, Anion Gap 15.6 H, BUN 9, Creatinine 0.90, Estimated Creat Clear 199, Estimated GFR 102, Est GFR ( Amer) 123, Glucose 126 H, Calcium 10.2, Total Bilirubin 0.7, AST 43, ALT 79 H, Alkaline Phosphatase 78, Total Protein 8.7 H, Albumin 4.3, Globulin 4.4 H, Albumin/Globulin Ratio 1.0 L 02/03/25 02:05 02/03/25 02:05 Orders (Tests/Meds): ED MEDICATIONS Generic Name Dose Route Start Last Admin Trade Name Freq PRN Reason Stop Dose Admin Sodium Chloride 10 ml 02/03/25 02:41 02/03/25 02:42 Sodium Chloride 0.9% 10ml Syr (Rad Only) IV 03/05/25 02:40 10 ml NEEDED PRN Administration Maintain IV Site Discontinued Medications Generic Name Dose Route Start Last Admin Trade Name Freq PRN Reason Stop Dose Admin Carbamazepine 200 mg 02/03/25 01:52 02/03/25 02:01 Carbamazepine 200mg Tablet PO 02/03/25 01:53 200 mg ONCE ONE Administration Iopamidol 75 ml 02/03/25 02:41 02/03/25 02:42 Iopamidol-370 (76%);100ml Bottle IV 02/03/25 02:42 75 ml ONCE ONE Administration ORDERS Category Date Time Status CT facial bones wo/w con Stat Cat Scan 02/03/25 01:58 Completed CBC w/Auto Diff [Complete Blood Count Auto Diff] Stat Lab 02/03/25 02:05 Completed CMP [Comprehensive Metabolic Panel] Stat Lab 02/03/25 02:05 Completed Medical Decision Narrative: In summary, this 24-year-old male presents to the emergency department today with left jaw pain. On initial evaluation patient is hemodynamically stable, afebrile, on physical exam patient has no intraoral abnormalities, no dental tenderness, he has a approximately 1 cm soft, similar chest superior to the left TMJ, no trismus, no sublingual or submandibular swelling or redness. Differential diagnosis includes but is not limited to trigeminal neuralgia, TMJ, I considered the possibility of dental infection but do not appreciate obvious evidence of this and there is no specific dental tenderness, I also do not suspect Luke's angina though it had my differential. I considered the possibility of soft tissue mass, lipoma, lymphadenopathy being the cause of the small mass, it is possible that this mass is potentially pressing on the trigeminal nerve. Since there has not been formal imaging of this mass, I believe this should be initiated with CT to evaluate for more insidious cause, and outpatient MRI can be ordered by PCP in the future. Based on these concerns, I ordered basic hematologic and serum labs, CT face with and without contrast I had extensive discussion with the patient about options for pain control being limited for trigeminal neuralgia unfortunately especially after the medications he has tried. He already stated he does not want to try narcotics. I discussed the risks of initiation of carbamazepine, but use willing to do this at this time. I explained to him that I will start him on a low-dose and send in a short course prescription but that I need him to see his primary care doctor immediately for follow-up for continued evaluation and continued titration or cessation of this medication as appropriate. He is agreeable to this. Carbamazepine administered. Labs reviewed by me demonstrate no acutely actionable abnormalities. CT face personally interpreted demonstrates no abscess, the small area of mass does not appear to be infectious. See radiology read for final interpretation which comments the mass is a lipoma. On reassessment patient is still having pain despite the carbamazepine. We discussed that narcotics are not a good option and he is not interested in them in the first place. He understands that continues to the carbamazepine is standard of care for initial treatment of trigeminal neuralgia and wants to continue using this. A short prescription was provided with refills because I want the patient to follow-up closely with primary care and with pain management for continued titration, evaluation, and management. He was provided referral to Dr. Slaughter for pain management. He reports he already has referral to [facility] which I encouraged him to keep. I gave him instructions on use of home medications, continued use of antibiotics prescribed by dentist, strict instructions for close follow-up with PCP including to request MRI and neurology follow-up, and strict return precautions for the ER. He indicated understanding and the patient was discharged in stable condition Critical Care Critical Care Time Critical Care Time: No
[2025-02-03 02:25] LABS: Hematocrit 47.9 % (42.0-52.0); Hemoglobin 16.2 g/dL (14.1-18.0); Immature Granulocytes % 0.2 %; Mean Corpuscular HGB Conc 33.8 g/dL (31.8-35.4); Mean Corpuscular Hemoglobin 28.5 pg (27.0-31.2); Mean Corpuscular Volume 84.2 fl (80-94); Nucleated Red Blood Cells % 0 %; Platelet Count 328 K/mm3 (142-424); Red Blood Count 5.69 M/mm3 (4.60-6.20); Red Cell Distribution Width-SD 36.0 fL; White Blood Count 9.9 K/mm3 (4.8-10.8)
[2025-02-03 02:29] LABS: Alanine Aminotransferase 79 U/L (12-78); Albumin Level 4.3 g/dl (3.5-5.0); Albumin/Globulin Ratio 1.0 (1.1-1.8); Alkaline Phosphatase 78 U/L (38-126); Anion Gap 15.6 mEq/L (5-15); Aspartate Amino Transferase 43 U/L (17-59); Bilirubin,Total 0.7 mg/dl (0.2-1.3); Blood Urea Nitrogen 9 mg/dl (9-20); Calcium 10.2 mg/dl (8.4-10.2); Carbon Dioxide 25 mmol/L (22.0-30.0); Chloride 102 mmol/L (98-107); Creatinine Clearance Estimated 199 mL/min (50-200); Creatinine,Serum 0.90 mg/dl (0.66-1.25); Estimated Glomerular Filt Rate 102 ml/min (>60); GFR (African American) 123 ML/MIN (>60); Globulin 4.4 g/dL (1.3-3.2); Glucose 126 mg/dl (74-100); Potassium 4.6 mmoL/L (3.5-5.1); Sodium 138 mmol/L (136-145); Total Protein,Serum 8.7 g/dl (6.3-8.2)
[2025-02-03] MEDS: IOPAMIDOL-370 (76%);100ML BOTTLE 75 ML IV (02:42)
[2025-02-03] MEDS: SODIUM CHLORIDE 0.9% 10ML SYR (RAD ONLY) 10 ML IV (02:42)
[2025-02-03 03:23] VITALS: BP 170/99; PULSE 87; RESP 16; O2SAT 98
[2025-02-03 03:35] VITALS: BP 170/99; PULSE 87; RESP 18; TEMP 36.7; O2SAT 98
== END 2025-02-03 03:43 | disposition home or self-care (01) ==
PROVIDERS: Emergency Provider Emergency Medicine; PCP Nurse Practitioner Family
DX: G50.0 Trigeminal neuralgia (principal); R68.84 Jaw pain; D17.0 Benign lipomatous neoplasm of skin and subcutaneous tissue of head, face and neck
CPT/HCPCS: 70488; 80053; 85025; 99284; Q9967